=== PATIENT | male | born 1945 | race Caucasian/White ===

== ENCOUNTER 2020-10-07 12:14 | Inpatient (IN) | payer MEDICARE, BC ==
[2020-10-07] MEDS ORDERED: Ondansetron ODT 4 MG TAB SL PRN (17:28)
[2020-10-07] MEDS: Heparin 5,000 UNITS/ML VIAL SC SCH (20:24)
[2020-10-07] MEDS: Amiodarone 200 MG TAB PO SCH (20:24)
[2020-10-07] MEDS: Melatonin 3 MG TAB PO SCH (20:24)
[2020-10-07] MEDS: Senokot S 8.6-50 MG TAB PO SCH (20:25)
[2020-10-07] MEDS: Nystatin Cream 15 GM TUBE TOP SCH (20:33)
[2020-10-08 05:13] LABS: #Basophils 0.1 thou/uL (0.0-0.2); #Eosinphils 0.2 thou/uL (0.0-0.7); #Lymphocytes 0.9 thou/uL (1.20-3.40); #Monocytes 0.9 thou/uL (0.11-0.59); %Basophils 0.7 % (0.0-1.0); %Eosinophils 2.4 % (0.0-10.0); %Lymphocytes 11.4 % (21.0-51.0); %Monocytes 10.7 % (0.0-10.0); %Neutrophils 74.8 % (42.0-75.0); Mean Corpuscular HGB CONC 30.6 g/dL (32.0-36.0); Mean Corpuscular Hemoglobin 29.6 pg (27.0-31.0); Mean Corpuscular Volume 96.7 fL (78.0-98.0); Mean Platelet Volume 8.2 fL (7.4-10.4); Platelet Count 255 thou/uL (130-400); RBC Distribution Width 15.4 % (11.5-14.5); White Blood Cell (WBC) Count 8.1 thou/uL (4.8-10.8)
[2020-10-08 05:27] LABS: ALT (SGPT) 26 U/L (8-55); AST (SGOT) 30 U/L (5-34); Albumin 3.3 g/dL (3.4-4.8); Alkaline Phosphatase 114 U/L (40-110); Anion Gap 21 mmol/L (10-20); BUN (Urea Nitrogen) 71 mg/dL (8.4-25.7); Bilirubin, Total 0.4 mg/dL (0.2-1.2); Calc. Creatinine Clearance 18 mL/min (70-130); Calcium 8.5 mg/dL (7.8-10.44); Carbon Dioxide 21 mmol/L (23-31); Chloride 96 mmol/L (98-107); Globulin 3.3 g/dL (2.4-3.5); Glucose 120 mg/dL (83-110); Potassium 4.8 mmol/L (3.5-5.1); Protein, Total 6.6 g/dL (5.8-8.1); Sodium 133 mmol/L (136-145)
[2020-10-08 05:42] LABS: SARS-CoV-2 MS2 Positive; SARS-CoV-2 N Gene Negative; SARS-CoV-2 S Gene Negative; SARS-CoV-2 by NAA Not Detected (NotDetected); SARS-CoV-2 orf1ab Negative
[2020-10-08] MEDS ORDERED: traMADol HCl 50 MG TAB PO SCH (06:30)
[2020-10-08] MEDS: Gabapentin 300 MG CAP PO SCH ×2 (08:27→20:47)
[2020-10-08] MEDS: Atorvastatin Calcium 40 MG TAB PO SCH (08:27)
[2020-10-08] MEDS: Heparin 5,000 UNITS/ML VIAL SC SCH ×3 (08:27→20:48)
[2020-10-08] MEDS: Carvedilol 3.125 MG TAB PO SCH ×2 (08:28→17:17)
[2020-10-08] MEDS: Nystatin Cream 15 GM TUBE TOP SCH ×3 (08:28→20:47)
[2020-10-08] MEDS: Amiodarone 200 MG TAB PO SCH ×2 (08:28→20:47)
[2020-10-08] MEDS: Aspirin Chewable 81 MG TAB PO SCH (08:28)
[2020-10-08] MEDS: Melatonin 3 MG TAB PO SCH (20:47)
[2020-10-08] MEDS: Senokot S 8.6-50 MG TAB PO SCH ×2 (20:47→20:54)
[2020-10-08] MEDS ORDERED: Dextrose 50% Abboject 50 ML SYRINGE IVP PRN (22:15)
[2020-10-08] MEDS ORDERED: Dextrose 5% in Water 1,000 ML IV PRN (22:15)
--- NOTE | 2020-10-09 01:17 | HP ---
HISTORY OF PRESENT ILLNESS: The patient is a very pleasant 74-year-old white male with a history of systolic heart failure with subsequent ventricular arrhythmias and cardiopulmonary arrest requiring AICD placement. He also has a history of end-stage renal disease, on hemodialysis. [facility], but has still been unable to maintain ADLs and therefore is admitted to the [facility] for more therapy. He has a history of coronary artery bypass graft x3 in 1996 with a subsequent systolic cardiomyopathy with ejection fraction of 45%. He also has a history of type 2 diabetes, which has been fairly well controlled, but with complications of end-stage renal disease, on hemodialysis. PAST SURGICAL HISTORY: Positive for the above mentioned coronary artery bypass graft x3, AV fistula placement, AICD placement, multiple cardiac stents. SOCIAL HISTORY: He lives with his . He is a nonsmoker since his coronary artery bypass graft in 1996, he does not drink alcohol. FAMILY HISTORY: Both parents of heart disease. ALLERGIES: HE HAS NO KNOWN ALLERGIES. REVIEW OF SYSTEMS: HEENT: Denies headaches, dizziness, change in vision or hearing, hoarseness or dysphagia. PULMONARY: He denies cough, sputum production, pneumonia, asthma, or tuberculosis. CARDIOVASCULAR: He has above-mentioned history of dizziness, near syncope, and syncope, but has no shortness of breath at rest and no chest pain at rest. GASTROINTESTINAL: He denies nausea, vomiting, diarrhea, constipation, or abdominal pain. GENITOURINARY: He has above-mentioned history of end-stage renal disease, has very little urine output, but has had a recent urinary tract infection. MUSCULOSKELETAL: He has a history of a fracture of his left proximal humerus and is in a splint at this time. LABORATORY DATA: Show white count of 8100, hematocrit 35, hemoglobin 11, sodium is 133, potassium 4.8, chloride 96, bicarb 21, BUN 71, creatinine 5.82, calcium 8.5, total bilirubin 0.4, AST 38, ALT 26, alkaline phosphatase 114, albumin 3.3, and globulin 3.3. COVID negative. ASSESSMENT: The patient is an elderly white male with a history of ischemic cardiomyopathy and ventricular arrhythmias, status post AICD placement, who has significant deconditioning and is admitted to [facility] for continued PT, OT. He will also be monitored for any further signs of arrhythmia or shortness of breath. He will be continued on his hemodialysis three times weekly and will be continued on his prehospitalization medications of; 1. Amiodarone 200 mg twice daily. 2. Aspirin 81 daily. 3. Atorvastatin 40 mg daily. 4. Carvedilol 3.125 daily. 5. Gabapentin 300 twice daily. 6. He will have DVT prophylaxis with heparin 5000 units subcu twice daily and stress ulcer prophylaxis with pantoprazole 40 daily. 7. He will also be continued on ranolazine 500 mg twice daily for sick cardiomyopathy. 8. Tramadol as needed for his left shoulder pain. Job ID: [id number]
[2020-10-09] MEDS: Gabapentin 300 MG CAP PO SCH ×2 (08:46→19:59)
[2020-10-09] MEDS: Carvedilol 3.125 MG TAB PO SCH ×2 (08:46→16:08)
[2020-10-09] MEDS: Atorvastatin Calcium 40 MG TAB PO SCH (08:46)
[2020-10-09] MEDS: Amiodarone 200 MG TAB PO SCH ×2 (08:46→20:01)
[2020-10-09] MEDS: Aspirin Chewable 81 MG TAB PO SCH (08:46)
[2020-10-09] MEDS: Heparin 5,000 UNITS/ML VIAL SC SCH ×3 (08:46→20:01)
[2020-10-09] MEDS: Nystatin Cream 15 GM TUBE TOP SCH ×3 (08:47→19:58)
[2020-10-09] MEDS: Lidocaine 4% Topical Sol 50 ML BOT TOP PRN (12:00)
[2020-10-09] MEDS: HumaLOG 300 UNITS/3 ML VIAL SC PRN (16:24)
--- NOTE | 2020-10-09 19:09 | PRG ---
DATE OF SERVICE: 10/08/2020 SUBJECTIVE: The patient is lying in bed, somewhat upset about the food, but states that he is feeling better and cooperating with therapy. He denies any chest pain or shortness of breath. OBJECTIVE: VITAL SIGNS: Blood pressure is 121/68, temperature 97, pulse 63, respirations 20, O2 saturations 96% on room air. LUNGS: Clear. CARDIAC: Displays regular rhythm. ABDOMEN: Soft and nontender, but obese. SKIN AND EXTREMITIES: Show 2+ edema. ASSESSMENT: 1. Systolic heart failure, improving decompensation. 2. Ventricular arrhythmia, status post automatic implantable cardioverter defibrillator. 3. Morbid obesity. 4. Coronary artery disease, status post coronary artery bypass graft. PLAN: 1. Continue PT and OT. 2. Continue to monitor for shortness of breath or chest pain. 3. Review labs. 4. Discuss with therapy tomorrow. Job ID: [id number]
--- NOTE | 2020-10-09 19:34 | PRG ---
DATE OF SERVICE: SUBJECTIVE: Patient feels well, sitting up in the bed, worked well with Therapy. Still not enjoying the food, but feels he is getting stronger and he is hopeful he will be discharged next week. OBJECTIVE: VITAL SIGNS: His blood pressure is 122/60, temperature is 97, pulse 76, respirations 16, and O2 sats 94% on room air. LUNGS: Clear. CARDIAC: Shows regular rhythm. ABDOMEN: Obese and nontender. SKIN/EXTREMITIES: Show trace edema. No clubbing or cyanosis. NEUROLOGIC: Shows no focal findings. ASSESSMENT: 1. Compensated systolic heart failure. 2. Improving deconditioning. 3. Stable atrial fibrillation with rate control, on anticoagulation. PLAN: 1. Continue PT, OT. 2. Continue to monitor vital signs with Therapy. 3. Review labs and therapy notes. Job ID: [id number]
[2020-10-09] MEDS: Senokot S 8.6-50 MG TAB PO SCH (19:59)
[2020-10-09] MEDS: Melatonin 3 MG TAB PO SCH (19:59)
[2020-10-10] MEDS: HumaLOG 300 UNITS/3 ML VIAL SC PRN ×2 (05:47→12:00)
[2020-10-10] MEDS: Aspirin Chewable 81 MG TAB PO SCH (08:23)
[2020-10-10] MEDS: Amiodarone 200 MG TAB PO SCH ×2 (08:23→21:00)
[2020-10-10] MEDS: Heparin 5,000 UNITS/ML VIAL SC SCH ×3 (08:23→21:00)
[2020-10-10] MEDS: Atorvastatin Calcium 40 MG TAB PO SCH (08:23)
[2020-10-10] MEDS: Carvedilol 3.125 MG TAB PO SCH ×2 (08:23→17:18)
[2020-10-10] MEDS: Nystatin Cream 15 GM TUBE TOP SCH ×3 (08:24→21:00)
[2020-10-10] MEDS: Gabapentin 300 MG CAP PO SCH ×2 (08:24→21:04)
[2020-10-10] MEDS ORDERED: traMADol HCl 50 MG TAB PO SCH (11:00)
--- NOTE | 2020-10-10 14:11 | HP ---
HISTORY OF PRESENT ILLNESS: VITAL SIGNS: His blood pressure is 124/60, temperature is 97.8, pulse 67, respirations 20, and O2 sats 93% on room air. HEENT: Pupils are equal, round, and reactive to light and accommodation. Sclerae are anicteric. Conjunctivae are pale. Oral mucous membranes well hydrated. NECK: Supple. No nodes or masses. JVP is not elevated. LUNGS: Clear. CARDIAC: Shows irregular rhythm. ABDOMEN: Soft and nontender. Morbidly obese. There is SCD in place. SKIN/EXTREMITIES: Display 1 to 2+ edema. No clubbing or cyanosis. NEUROLOGIC: Intact. Job ID: [id number]
[2020-10-10] MEDS ORDERED: Pregabalin 50 MG CAP PO PRN (18:19)
--- NOTE | 2020-10-10 18:40 | PRG ---
DATE OF SERVICE: 10/10/2020 SUBJECTIVE: The patient lying in bed, feels well. Complains of recurrent burning pain in his scrotal and inguinal area, which he states is associated occasionally with a red rash. He describes it as a burning tingling pain that comes on at times. He is being treated with nystatin ointment with minimal relief. He states that when he took a tramadol that has helped him only minimally. He is working with therapy, but states he could not get out of the bed today because of this pain. OBJECTIVE: Shows that there is no real rash to be seen in his inguinal area. VITAL SIGNS: Show a blood pressure 121/65, pulse 67, respirations 20. He is afebrile. LUNGS: Clear. CARDIAC: Showed regular rhythm. ABDOMEN: Soft and nontender, but obese. ASSESSMENT: 1. Recurrent neuropathic pain in the right inguinal area which he states may have been due to shingles, but does not know of any history of shingles. 2. Ischemic cardiomyopathy, status post defibrillator placement after cardiac arrest, stable. 3. End-stage renal disease, on hemodialysis. 4. Severe deconditioning, improving slowly. 5. Stable atrial fibrillation with rate control and anticoagulation. PLAN: 1. Start pregabalin 50 mg q.8 hours as needed for neuropathic pain. 2. Continue nystatin. 3. Continue PT, OT. 4. Continue rate control and anticoagulation of atrial fibrillation. 5. Continue hemodialysis. Job ID: [id number]
[2020-10-10] MEDS: Melatonin 3 MG TAB PO SCH (21:00)
[2020-10-10] MEDS: Senokot S 8.6-50 MG TAB PO SCH (21:33)
--- NOTE | 2020-10-11 08:56 | PRG ---
DATE OF SERVICE: 10/11/2020 SUBJECTIVE: The patient is currently at dialysis right now and therefore I am not able to get a full history and physical on patient. However, nursing has no complaints at this time. The patient is using his Lyrica as needed for pain, which is helping per nursing staff. OBJECTIVE: VITAL SIGNS: Temperature 96.6, pulse of 67 to 69, respiratory rate 18 to 20, 96% on room air, blood pressure ranging 121/65 to 109/55. No new labs. Unable to perform physical exam as patient is at hemodialysis right now. ASSESSMENT: 1. Recurrent neuropathic pain in the right inguinal area. 2. Ischemic cardiomyopathy, status post defibrillator placement. 3. End-stage renal disease. 4. Severe deconditioning, improving. 5. Stable atrial fibrillation. PLAN: 1. Continue Lyrica 50 mg q.8h as needed for neuropathic pain. 2. Continue nystatin. 3. Continue PT, OT. 4. Continue rate control and anticoagulation of atrial fibrillation. 5. Continue hemodialysis. The patient is there at dialysis center today. Job ID: [id number] [facility]
[2020-10-11] MEDS: Aspirin Chewable 81 MG TAB PO SCH (09:25)
[2020-10-11] MEDS: Carvedilol 3.125 MG TAB PO SCH ×2 (09:25→16:08)
[2020-10-11] MEDS: Amiodarone 200 MG TAB PO SCH ×2 (09:25→20:33)
[2020-10-11] MEDS: Atorvastatin Calcium 40 MG TAB PO SCH (09:25)
[2020-10-11] MEDS: Nystatin Cream 15 GM TUBE TOP SCH ×3 (09:26→20:34)
[2020-10-11] MEDS: Gabapentin 300 MG CAP PO SCH ×2 (09:26→20:33)
[2020-10-11] MEDS: Heparin 5,000 UNITS/ML VIAL SC SCH ×3 (09:26→20:34)
[2020-10-11] MEDS: HumaLOG 300 UNITS/3 ML VIAL SC PRN (12:07)
[2020-10-11] MEDS: Lidocaine 4% Topical Sol 50 ML BOT TOP PRN ×2 (12:08→20:34)
[2020-10-11] MEDS: Melatonin 3 MG TAB PO SCH (20:33)
[2020-10-11] MEDS: Senokot S 8.6-50 MG TAB PO SCH (20:33)
[2020-10-12 07:36] LABS: #Basophils 0.1 thou/uL (0.0-0.2); #Eosinphils 0.1 thou/uL (0.0-0.7); #Monocytes 1.1 thou/uL (0.11-0.59); #Neutrophils 8.5 thou/uL (1.40-6.50); %Basophils 0.6 % (0.0-1.0); %Eosinophils 0.5 % (0.0-10.0); %Lymphocytes 9.1 % (21.0-51.0); %Monocytes 10.3 % (0.0-10.0); %Neutrophils 79.5 % (42.0-75.0); Hemoglobin 12.2 g/dL (14.0-18.0); Mean Corpuscular HGB CONC 31.5 g/dL (32.0-36.0); Mean Corpuscular Hemoglobin 30.3 pg (27.0-31.0); Mean Corpuscular Volume 96.1 fL (78.0-98.0); Mean Platelet Volume 7.8 fL (7.4-10.4); Platelet Count 257 thou/uL (130-400); RBC Distribution Width 16.4 % (11.5-14.5); Red Blood Cell (RBC) Count 4.04 mill/uL (4.70-6.10); White Blood Cell (WBC) Count 10.6 thou/uL (4.8-10.8)
[2020-10-12] MEDS: Carvedilol 3.125 MG TAB PO SCH ×2 (08:15→16:10)
[2020-10-12] MEDS: Amiodarone 200 MG TAB PO SCH ×2 (08:15→22:40)
[2020-10-12] MEDS: Atorvastatin Calcium 40 MG TAB PO SCH (08:15)
[2020-10-12] MEDS: Aspirin Chewable 81 MG TAB PO SCH (08:15)
[2020-10-12] MEDS: Nystatin Cream 15 GM TUBE TOP SCH ×3 (08:16→20:00)
[2020-10-12] MEDS: Gabapentin 300 MG CAP PO SCH ×2 (08:16→22:40)
[2020-10-12] MEDS: Heparin 5,000 UNITS/ML VIAL SC SCH ×3 (08:17→22:39)
[2020-10-12 08:34] LABS: Anion Gap 21 mmol/L (10-20); BUN (Urea Nitrogen) 46 mg/dL (8.4-25.7); Calc. Creatinine Clearance 21 mL/min (70-130); Calcium 8.5 mg/dL (7.8-10.44); Carbon Dioxide 23 mmol/L (23-31); Chloride 96 mmol/L (98-107); Potassium 4.2 mmol/L (3.5-5.1); Sodium 136 mmol/L (136-145)
[2020-10-12 08:49] LABS: Glucose 145 mg/dL (83-110)
--- NOTE | 2020-10-12 10:02 | PRG ---
DATE OF SERVICE: 10/12/2020 SUBJECTIVE: This is a well-appearing 74-year-old male, sitting up in his wheelchair, having just eaten breakfast. The patient states he is doing well on taking it "one day at a time." No concerns from nursing staff, however, nursing did report that he was inappropriate to her and attempted to grab her bottom when he was getting up. I discussed this with the patient and informed him that this will not be tolerated. REVIEW OF SYSTEMS: Reports left shoulder pain, but is improving. Reports cough as well that is stable. No shortness of breath. Nonproductive cough. No nausea, vomiting, diarrhea. No abdominal pain. OBJECTIVE: VITAL SIGNS: Today, temperature 97.8, pulse 69, respiratory rate 20, 95% on room air, blood pressure 120/70 to 108/55. GENERAL: Well-appearing, obese 74-year-old male, sitting up in his wheelchair at this time with left shoulder sling in place. HEART: Regular rate and rhythm. No murmurs, gallops, or rubs. RESPIRATORY: Clear to auscultation bilaterally. ABDOMEN: Nontender to palpation. Bowel sounds positive in all 4 quadrants. EXTREMITIES: Weakness on left side secondary to pain. Right upper extremity and bilateral lower extremities are 5/5 strength. ASSESSMENT: 1. Recurrent neuropathic pain in right inguinal area. 2. Ischemic cardiomyopathy, status post defibrillator. 3. End-stage renal disease with dialysis. 4. Severe deconditioning, improving. 5. Stable atrial fibrillation. PLAN: 1. Continue Lyrica 50 mg q.8 hours as needed for neuropathic pain. 2. Continue statin. 3. Continue PT/OT. 4. Continue rate control and anticoagulation of atrial fibrillation. 5. Continue hemodialysis. 6. I spoke with patient about his inappropriate comments and inappropriate actions, and he states that he is sorry that he caused any upset and he will not do these again. Job ID: [id number]
[2020-10-12] MEDS: Senokot S 8.6-50 MG TAB PO SCH (21:00)
[2020-10-12] MEDS: Melatonin 3 MG TAB PO SCH (22:40)
[2020-10-13] MEDS: Nystatin Cream 15 GM TUBE TOP SCH ×3 (09:00→20:47)
[2020-10-13] MEDS: Heparin 5,000 UNITS/ML VIAL SC SCH ×3 (09:12→20:39)
[2020-10-13] MEDS: Carvedilol 3.125 MG TAB PO SCH ×2 (11:09→18:02)
[2020-10-13] MEDS: Gabapentin 300 MG CAP PO SCH ×2 (11:09→20:45)
[2020-10-13] MEDS: Atorvastatin Calcium 40 MG TAB PO SCH (11:09)
[2020-10-13] MEDS: Aspirin Chewable 81 MG TAB PO SCH (11:09)
[2020-10-13] MEDS: Amiodarone 200 MG TAB PO SCH ×2 (11:15→20:44)
[2020-10-13] MEDS: HumaLOG 300 UNITS/3 ML VIAL SC PRN (12:03)
[2020-10-13] MEDS: Melatonin 3 MG TAB PO SCH (20:44)
[2020-10-13] MEDS: Senokot S 8.6-50 MG TAB PO SCH (20:46)
--- NOTE | 2020-10-14 05:54 | PRG ---
DATE OF SERVICE: 10/13/2020 SUBJECTIVE: The patient complains of being depressed and not seeing any into his hospitalization. He is cooperating with therapy and is awaiting therapy notes. Nurses states that he does have a slight increase cough, but he denies increased dyspnea. He is requiring oxygen at this time. OBJECTIVE: VITAL SIGNS: Shows his temperature is 98, pulse 84, respirations 18, and O2 sats 94% on room air. LUNGS: Show a few crackles in the bases. CARDIAC: Shows regular rhythm. SKIN/EXTREMITIES: Show trace edema. No clubbing. Does show the left arm is in a shoulder immobilizer. NEUROLOGIC: Intact. ASSESSMENT: 1. Increased depression and after discussion with the patient, we will start on sertraline. 2. Deconditioning with slow improvement and we will discuss with therapy today. 3. Ischemic cardiomyopathy, status post defibrillator, appears to be stable. 4. End-stage renal disease, on dialysis. 5. History of intermittent cough. PLAN: 1. Start sertraline 50 mg daily. 2. Discuss with therapy tomorrow about discharge plans. 3. Monitor cough. 4. Continue dialysis three times weekly. Job ID: [id number]
[2020-10-14 06:52] LABS: #Eosinphils 0.2 thou/uL (0.0-0.7); #Lymphocytes 0.8 thou/uL (1.20-3.40); #Monocytes 1.1 thou/uL (0.11-0.59); #Neutrophils 7.3 thou/uL (1.40-6.50); %Basophils 0.4 % (0.0-1.0); %Eosinophils 2.1 % (0.0-10.0); %Lymphocytes 8.8 % (21.0-51.0); %Monocytes 11.5 % (0.0-10.0); %Neutrophils 77.1 % (42.0-75.0); Hemoglobin 11.8 g/dL (14.0-18.0); Mean Corpuscular HGB CONC 31.2 g/dL (32.0-36.0); Mean Corpuscular Hemoglobin 30.1 pg (27.0-31.0); Mean Corpuscular Volume 96.6 fL (78.0-98.0); Mean Platelet Volume 9.2 fL (7.4-10.4); Platelet Count 190 thou/uL (130-400); RBC Distribution Width 16.5 % (11.5-14.5); Red Blood Cell (RBC) Count 3.91 mill/uL (4.70-6.10); White Blood Cell (WBC) Count 9.4 thou/uL (4.8-10.8)
[2020-10-14] MEDS: Nystatin Cream 15 GM TUBE TOP SCH ×3 (08:52→20:29)
[2020-10-14] MEDS: Heparin 5,000 UNITS/ML VIAL SC SCH ×3 (08:52→20:27)
[2020-10-14] MEDS: Gabapentin 300 MG CAP PO SCH ×2 (08:53→20:27)
[2020-10-14] MEDS: Amiodarone 200 MG TAB PO SCH ×2 (08:55→20:26)
[2020-10-14] MEDS: Aspirin Chewable 81 MG TAB PO SCH (08:55)
[2020-10-14] MEDS: Carvedilol 3.125 MG TAB PO SCH ×2 (08:55→17:35)
[2020-10-14] MEDS: Atorvastatin Calcium 40 MG TAB PO SCH (08:56)
--- NOTE | 2020-10-14 09:05 | RAD ---
PORTABLE CHEST: Date: 10/14/2020 HISTORY: Cough, shortness of breath. COMPARISON: 09/14/2020. FINDINGS/IMPRESSION: Cardiomegaly with postop sternotomy change. AICD leads unchanged. Large caliber central line overlies the SVC and is stable in position. Left basilar opacification may represent small effusion and left basilar infiltrate or atelectasis. Vascular congestion has improved since prior study. Tiny effusions may be present. POS: AGW
[2020-10-14] MEDS: HumaLOG 300 UNITS/3 ML VIAL SC PRN ×2 (13:01→20:31)
[2020-10-14 15:24] LABS: SARS-CoV-2 MS2 Positive; SARS-CoV-2 N Gene Positive; SARS-CoV-2 S Gene Positive; SARS-CoV-2 by NAA DETECTED (NotDetected); SARS-CoV-2 orf1ab Positive
[2020-10-14] MEDS: Senokot S 8.6-50 MG TAB PO SCH (20:25)
[2020-10-14] MEDS: Melatonin 3 MG TAB PO SCH (20:26)
--- NOTE | 2020-10-15 06:44 | PRG ---
DATE OF SERVICE: 10/14/2020 SUBJECTIVE: The patient is a 74-year-old white male with a history of ischemic cardiomyopathy and end-stage renal disease, on hemodialysis, who has been undergoing physical therapy for severe deconditioning and has had an intermittent cough at night only. He has had some pulmonary congestion on chest x-ray but has been having fluid removed at dialysis. He has been cooperating with therapy but has been very weak and minimally improving. He has had no fever or chills; however, because of his cough at night, he has had chest x-ray done for evaluation. OBJECTIVE: His chest x-ray shows pulmonary congestion, possible left lower lobe effusion and cardiomegaly, which appears to be stable and possibly slightly improved from previous x-ray last week. LUNGS: Show crackles in the bases. CARDIAC: Shows regular rhythm. ABDOMEN: Obese but nontender. SKIN/EXTREMITIES: Show no edema. VITAL SIGNS: Show a temperature of 97, pulse 62, respirations 20, O2 sats 96% on 1 L. LABORATORY DATA: Laboratory however has returned with elevated BNP of 462, which is consistent with his previous BNPs. Accu-Cheks have been stable at 123 to 172. His chest x-ray was as above. White count was normal at 9400, however, hematocrit 37 and hemoglobin 11, but COVID-19 test had returned positive on , this morning, and was negative on October 07 when accepted here. ASSESSMENT: 1. End-stage renal disease, on hemodialysis three times weekly with some improving fluid congestion. 2. Severe ischemic cardiomyopathy with no dyspnea at rest but with severe deconditioning and weakness on exertion, cooperating with therapy with minimal improvement. 3. New onset of depression, was confirmed by the patient and family, and being started on treatment with sertraline at his request. 4. New onset of COVID infection last week since admission. PLAN: 1. Contact tracing of COVID infection, possibly from dialysis, transport and/or hospital staff. 2. Continue monitor closely as the patient does appear to not have any evidence of pneumonia or respiratory distress. We will place on isolation with continued therapy in the room. 3. Ischemic cardiomyopathy with stable elevated BNP and cough, possibly due to pulmonary congestion. We will advise dialysis, about fluid removal. Continue on same medications. 4. Discussed situation with the family and advised isolation and close monitoring here and transfer to [facility] if any signs of deterioration of cardiopulmonary status, specifically change in vital signs or oxygen saturation. His prognosis is guarded and the family understands. Job ID: [id number]
[2020-10-15] MEDS: Amiodarone 200 MG TAB PO SCH ×2 (09:05→21:30)
[2020-10-15] MEDS: Atorvastatin Calcium 40 MG TAB PO SCH (09:05)
[2020-10-15] MEDS: Carvedilol 3.125 MG TAB PO SCH ×2 (09:05→16:06)
[2020-10-15] MEDS: Aspirin Chewable 81 MG TAB PO SCH (09:05)
[2020-10-15] MEDS: Nystatin Cream 15 GM TUBE TOP SCH ×3 (09:06→23:19)
[2020-10-15] MEDS: Heparin 5,000 UNITS/ML VIAL SC SCH ×3 (09:06→21:30)
[2020-10-15] MEDS: Gabapentin 300 MG CAP PO SCH ×2 (09:06→21:29)
[2020-10-15] MEDS: Lidocaine 4% Topical Sol 50 ML BOT TOP PRN (16:05)
--- NOTE | 2020-10-15 21:05 | PRG ---
DATE OF SERVICE: 10/15/2020 SUBJECTIVE: The patient is a well-appearing 74-year-old white male here for PT and OT services following ischemic cardiomyopathy. The patient had pulmonary congestion on chest x-ray earlier this week, and it was found that the patient had positive COVID-19 test since being admitted here. It is unknown if this is from him going to dialysis or from a worker here at the [facility]. OBJECTIVE: VITAL SIGNS: Temperature 96.6 to 98.0, pulse 69 to 74, respiratory rate 18, and O2 saturation 98% on room air. However, patient has been increased to 98% on 2 L nasal cannula. Blood pressure ranging from 116/59 to 122/58. LABORATORY DATA: White count 9.4, hemoglobin 11.8, hematocrit 37.8, and platelets 190. CBGs ranging from 123 to 174. ASSESSMENT: 1. End-stage renal disease, on hemodialysis. 2. Severe ischemic cardiomyopathy with no dyspnea at rest, but with severe deconditioning and weakness on exertion. Cooperating with therapy with minimal improvement. 3. New onset of depression, on sertraline. 4. New onset of COVID infection, last week since admission. PLAN: 1. Contact tracing of COVID infection from dialysis versus hospital staff. 2. Continue to monitor closely. If the patient requires further oxygen, he may be required to be transferred back to [facility]. 3. Ischemic cardiomyopathy with stable elevated BNP and cough possibly due to pulmonary congestion. Continue to monitor after dialysis. 4. Continue monitor for decompensation. 5. Continue PT and OT services. Job ID: [id number]
[2020-10-15] MEDS: Senokot S 8.6-50 MG TAB PO SCH (21:30)
[2020-10-15] MEDS: Melatonin 3 MG TAB PO SCH (21:30)
[2020-10-16] MEDS: Atorvastatin Calcium 40 MG TAB PO SCH (08:15)
[2020-10-16] MEDS: Aspirin Chewable 81 MG TAB PO SCH (08:15)
[2020-10-16] MEDS: Gabapentin 300 MG CAP PO SCH ×2 (08:16→21:44)
[2020-10-16] MEDS: Carvedilol 3.125 MG TAB PO SCH ×2 (08:17→17:02)
[2020-10-16] MEDS: Amiodarone 200 MG TAB PO SCH ×2 (08:17→21:44)
[2020-10-16] MEDS: Nystatin Cream 15 GM TUBE TOP SCH ×3 (08:18→21:43)
[2020-10-16] MEDS: Heparin 5,000 UNITS/ML VIAL SC SCH ×3 (08:19→21:45)
[2020-10-16] MEDS: Lidocaine 4% Topical Sol 50 ML BOT TOP PRN (15:00)
--- NOTE | 2020-10-16 16:29 | PRG ---
DATE OF SERVICE: 10/16/2020 SUBJECTIVE: Mr. Canseco is up in bed. He denies any complaints. He does have oxygen via nasal cannula. He also has a splint to his left forearm. He apparently tested positive for COVID-19. His herpes zoster outbreak has pretty much resolved. No family at bedside. Discussed with nursing. OBJECTIVE: VITAL SIGNS: He is afebrile. Heart rate is 60, respirations 16, oxygen saturation 98% on 1 L nasal cannula, blood pressure 109/68. CARDIOVASCULAR: S1, S2 plus. RESPIRATORY: Normal vesicular breath sounds. ABDOMEN: Soft, obese, nontender. Bowel sounds heard in all quadrants. EXTREMITIES: Without cyanosis, clubbing. Left arm in a splint. CENTRAL NERVOUS SYSTEM: Generalized weakness, otherwise nonfocal. IMPRESSION: 1. COVID positive. 2. End-stage renal disease, on hemodialysis. 3. Ischemic cardiomyopathy. 4. Resolved herpes zoster. 5. Anxiety and depression. 6. Diabetes mellitus type 2 and deconditioning. PLAN: 1. Continue current medications. 2. 1800 calorie heart healthy ADA renal diet. 3. Accu-Cheks with sliding scale coverage. 4. Monitor blood pressure and adjust medications as needed. 5. Monitor respiratory status. 6. Respiratory droplet precaution. 7. Hemodialysis per Nephrology. 8. Physical therapy. 9. Routine laboratory values. Job ID: [id number]
[2020-10-16] MEDS: Melatonin 3 MG TAB PO SCH (21:45)
[2020-10-16] MEDS: Senokot S 8.6-50 MG TAB PO SCH (21:45)
[2020-10-17] MEDS: Heparin 5,000 UNITS/ML VIAL SC SCH ×3 (09:03→20:49)
[2020-10-17] MEDS: Atorvastatin Calcium 40 MG TAB PO SCH (09:05)
[2020-10-17] MEDS: Gabapentin 300 MG CAP PO SCH ×2 (09:05→20:49)
[2020-10-17] MEDS: Carvedilol 3.125 MG TAB PO SCH ×2 (09:05→17:55)
[2020-10-17] MEDS: Amiodarone 200 MG TAB PO SCH ×2 (09:06→20:49)
[2020-10-17] MEDS: Nystatin Cream 15 GM TUBE TOP SCH ×3 (09:06→20:55)
[2020-10-17] MEDS: Aspirin Chewable 81 MG TAB PO SCH (09:06)
--- NOTE | 2020-10-17 15:38 | PRG ---
DATE OF SERVICE: 10/17/2020 SUBJECTIVE: Mr. Canseco is doing the same, resting in bed, finished lunch. Denies any questions or concerns. OBJECTIVE: VITAL SIGNS: He is afebrile, heart rate 62, respirations 18, oxygen saturation 98% on 1 L nasal cannula, blood pressure 102/58. CARDIOVASCULAR: S1-S2 plus. RESPIRATORY: Normal vesicular breath sounds with decreased air entry in the bases. ABDOMEN: Soft, obese, nontender. EXTREMITIES: Without cyanosis or clubbing. Left arm in a splint. Trace chronic lower extremity edema. IMPRESSION: 1. COVID-19 positive. 2. Hypoxemic respiratory failure. 3. Ischemic cardiomyopathy. 4. Diabetes mellitus type 2. 5. Deconditioning. PLAN: 1. Continue current medications. 2. 1800 calorie heart healthy ADA renal diet. 3. Accu-Cheks with sliding scale coverage. 4. Monitor respiratory status. 5. Continue respiratory droplet precautions. Hemodialysis per Nephrology. 6. Continue physical therapy. 7. Routine laboratory values. Job ID: [id number]
[2020-10-17] MEDS: Melatonin 3 MG TAB PO SCH (20:49)
[2020-10-17] MEDS: Senokot S 8.6-50 MG TAB PO SCH (20:53)
[2020-10-18] MEDS: Atorvastatin Calcium 40 MG TAB PO SCH (10:50)
[2020-10-18] MEDS: Aspirin Chewable 81 MG TAB PO SCH (10:51)
[2020-10-18] MEDS: Amiodarone 200 MG TAB PO SCH ×2 (10:52→21:54)
[2020-10-18] MEDS: Nystatin Cream 15 GM TUBE TOP SCH ×3 (10:53→21:50)
[2020-10-18] MEDS: Carvedilol 3.125 MG TAB PO SCH ×2 (10:53→18:06)
[2020-10-18] MEDS: Gabapentin 300 MG CAP PO SCH ×2 (10:53→21:53)
[2020-10-18] MEDS: Heparin 5,000 UNITS/ML VIAL SC SCH ×3 (10:58→21:53)
--- NOTE | 2020-10-18 16:43 | PRG ---
DATE OF SERVICE: 10/18/2020 SUBJECTIVE: Mr. Canseco from dialysis. He apparently had a slight drop in blood pressure after the carvedilol. He is not showing any signs of decreased perfusion. He remains mentally alert. Discussed with Nursing and I advised them to hold carvedilol if systolic blood pressure is less than 120. OBJECTIVE: VITAL SIGNS: He is afebrile, heart rate 65, respirations 20, oxygen saturation 96% on 2 L, blood pressure 94/74. CARDIOVASCULAR: S1-S2 plus. RESPIRATORY: Normal vesicular breath sounds. ABDOMEN: Soft, obese, nontender. EXTREMITIES: Without cyanosis or clubbing. Trace edema. CENTRAL NERVOUS SYSTEM: Generalized weakness. IMPRESSION: 1. COVID-19 infection. 2. Ischemic cardiomyopathy. 3. End-stage renal disease, on hemodialysis. 4. Diabetes mellitus, type 2. 5. Deconditioning. PLAN: 1. Continue current medications. 2. Hold carvedilol if systolic blood pressure is less than 120. 3. Accu-Cheks with sliding scale coverage. 4. 1800 calorie heart healthy ADA renal diet. 5. Continue brace/splint for his left shoulder. 6. Hemodialysis per Nephrology. 7. Physical therapy. 8. Continue respiratory droplet precautions. Job ID: [id number]
[2020-10-18] MEDS: Melatonin 3 MG TAB PO SCH (21:52)
[2020-10-18] MEDS: Senokot S 8.6-50 MG TAB PO SCH (21:53)
[2020-10-19 06:12] VITALS: BMI 30.1
[2020-10-19] MEDS: Atorvastatin Calcium 40 MG TAB PO SCH (09:12)
[2020-10-19] MEDS: Nystatin Cream 15 GM TUBE TOP SCH ×3 (09:12→21:08)
[2020-10-19] MEDS: Gabapentin 300 MG CAP PO SCH ×3 (09:12→22:12)
[2020-10-19] MEDS: Amiodarone 200 MG TAB PO SCH ×3 (09:14→22:13)
[2020-10-19] MEDS: Carvedilol 3.125 MG TAB PO SCH ×3 (09:14→17:25)
[2020-10-19] MEDS: Aspirin Chewable 81 MG TAB PO SCH (09:15)
[2020-10-19] MEDS: Heparin 5,000 UNITS/ML VIAL SC SCH ×3 (09:15→21:05)
--- NOTE | 2020-10-19 12:34 | RAD ---
EXAM: Single view of the chest HISTORY: Shortness of breath COMPARISON: 10/14/2020 FINDINGS: Single view of the chest shows an enlarged but stable cardiomediastinal silhouette. The pa tient is status post CABG. The dialysis catheter and pacemaker are unchanged in position. There appears to be a small left pleural effusion with adjacent atelectasis versus infiltrate. Atelectasis versus infiltrate may also be seen in the right lung base. There appears to be a fracture the proximal left humerus. IMPRESSION: Cardiomegaly and left pleural effusion with adjacent atelectasis versus infiltrate
[2020-10-19] MEDS: Albuterol Sulfate 2.5 mg/3 ml Neb NEB PRN ×2 (14:18→23:13)
--- NOTE | 2020-10-19 15:00 | PRG ---
DATE OF SERVICE: 10/19/2020 SUBJECTIVE: Mr. Canseco is more somnolent today. Nursing was consented, code elmer was called. His vital signs were stable. I ordered a stat chest x-ray, which does not show any changes compared to the previous one on the . Did order some breathing treatments and encouraging the patient to use his incentive spirometry. The patient apparently is not compliant. No family at bedside. OBJECTIVE: VITAL SIGNS: He is afebrile, heart rate 66, respirations 21, oxygen saturation 93% on 1 L, and blood pressure 127/60. CARDIOVASCULAR: S1 and S2 plus. RESPIRATORY: Normal vesicular breath sounds with occasional rhonchi. Decreased breath sounds of the left base. ABDOMEN: Soft, obese, nontender. EXTREMITIES: Without cyanosis, clubbing. Edema, chronic is present. CENTRAL NERVOUS SYSTEM: Awake and responsive, but somnolent. No changes from yesterday. IMPRESSION: 1. End-stage renal disease, on hemodialysis. 2. Recent COVID-19 infection. 3. Ischemic cardiomyopathy. 4. Significant deconditioning. 5. Left humerus fracture. 6. Obesity. 7. Diabetes mellitus type 2. PLAN: 1. Continue current medications. 2. 1800-calorie heart healthy ADA diet. 3. Accu-Cheks with sliding scale coverage. 4. Orthopedic precautions. 5. DVT prophylaxis with heparin. 6. Decubitus precaution. 7. Stress ulcer prophylaxis. 8. Dr. Holland will assume care at 9 p.m. [email or web address]. 9. Reinforce compliance with incentive spirometry. Job ID: [id number]
[2020-10-19] MEDS: Senokot S 8.6-50 MG TAB PO SCH (21:01)
[2020-10-19] MEDS: Melatonin 3 MG TAB PO SCH ×2 (21:06→22:15)
[2020-10-20 05:30] LABS: #Eosinphils 0.2 thou/uL (0.0-0.7); #Lymphocytes 0.7 thou/uL (1.20-3.40); #Monocytes 0.8 thou/uL (0.11-0.59); #Neutrophils 6.6 thou/uL (1.40-6.50); %Basophils 0.3 % (0.0-1.0); %Eosinophils 2.1 % (0.0-10.0); %Lymphocytes 8.8 % (21.0-51.0); %Monocytes 9.5 % (0.0-10.0); %Neutrophils 79.3 % (42.0-75.0); Hemoglobin 11.4 g/dL (14.0-18.0); Mean Corpuscular HGB CONC 31.1 g/dL (32.0-36.0); Mean Corpuscular Hemoglobin 30.4 pg (27.0-31.0); Mean Corpuscular Volume 97.9 fL (78.0-98.0); Mean Platelet Volume 8.9 fL (7.4-10.4); Platelet Count 152 thou/uL (130-400); RBC Distribution Width 17.8 % (11.5-14.5); Red Blood Cell (RBC) Count 3.74 mill/uL (4.70-6.10); White Blood Cell (WBC) Count 8.3 thou/uL (4.8-10.8)
[2020-10-20 05:40] LABS: Anion Gap 22 mmol/L (10-20); BUN (Urea Nitrogen) 59 mg/dL (8.4-25.7); Calc. Creatinine Clearance 14 mL/min (70-130); Carbon Dioxide 23 mmol/L (23-31); Chloride 102 mmol/L (98-107); Glucose 88 mg/dL (83-110); Potassium 5.3 mmol/L (3.5-5.1); Sodium 142 mmol/L (136-145)
[2020-10-20] MEDS: Albuterol Sulfate 2.5 mg/3 ml Neb NEB PRN (09:49)
[2020-10-20] MEDS: Heparin 5,000 UNITS/ML VIAL SC SCH ×3 (09:55→21:21)
[2020-10-20] MEDS: Carvedilol 3.125 MG TAB PO SCH ×2 (09:58→18:46)
[2020-10-20] MEDS: Aspirin Chewable 81 MG TAB PO SCH (09:59)
[2020-10-20] MEDS: Atorvastatin Calcium 40 MG TAB PO SCH (09:59)
[2020-10-20] MEDS: Amiodarone 200 MG TAB PO SCH ×2 (09:59→20:10)
[2020-10-20] MEDS: Gabapentin 300 MG CAP PO SCH (10:00)
[2020-10-20] MEDS: Nystatin Cream 15 GM TUBE TOP SCH ×3 (10:01→21:21)
--- NOTE | 2020-10-20 19:41 | PRG ---
DATE OF SERVICE: 10/20/2020 SUBJECTIVE: The patient is awake, but appears to be confused and lethargic. Answers questions somewhat appropriately, but slowly, in no respiratory distress and denies any pain or shortness of breath. OBJECTIVE: VITAL SIGNS: Shows temperature is 97, pulse 71, respirations 17, O2 sats 93% on 1 L, and blood pressure 129/69. LUNGS: Clear. CARDIAC: Shows regular rhythm. ABDOMEN: Obese and nontender. SKIN/EXTREMITIES: Show 1+ edema. No clubbing or cyanosis. LABORATORY DATA: White count is 8300, hematocrit 36, and hemoglobin 11. Sodium 142, potassium 5.3, chloride 102, bicarb 23, BUN 59, and creatinine 6.27. Accu-Cheks 81 to 104. ASSESSMENT: 1. Increased lethargy, possibly due to side effect from combination of gabapentin and Lyrica and we will discontinue gabapentin and only continue Lyrica as needed. 2. Ischemic cardiomyopathy, improved, but still having to hold carvedilol occasionally. 3. Diabetes type 2, controlled to goal. 4. End-stage renal disease, on hemodialysis, stable. PLAN: 1. Discontinue gabapentin. 2. Monitor vital signs. 3. Continue PT, OT and discuss with therapy tomorrow and plan for discharge. Job ID: [id number]
[2020-10-20] MEDS: Senokot S 8.6-50 MG TAB PO SCH (20:10)
[2020-10-20] MEDS: Melatonin 3 MG TAB PO SCH (20:10)
[2020-10-21] MEDS: Carvedilol 3.125 MG TAB PO SCH ×2 (07:50→16:46)
[2020-10-21] MEDS: Aspirin Chewable 81 MG TAB PO SCH (09:26)
[2020-10-21] MEDS: Amiodarone 200 MG TAB PO SCH ×2 (09:26→21:05)
[2020-10-21] MEDS: Atorvastatin Calcium 40 MG TAB PO SCH (09:26)
[2020-10-21] MEDS: Heparin 5,000 UNITS/ML VIAL SC SCH ×3 (09:26→21:05)
[2020-10-21] MEDS: Nystatin Cream 15 GM TUBE TOP SCH ×3 (09:26→21:06)
[2020-10-21 16:10] LABS: #Eosinphils 0.1 thou/uL (0.0-0.7); #Lymphocytes 0.5 thou/uL (1.20-3.40); #Monocytes 0.8 thou/uL (0.11-0.59); #Neutrophils 8.8 thou/uL (1.40-6.50); %Basophils 0.2 % (0.0-1.0); %Eosinophils 0.6 % (0.0-10.0); %Lymphocytes 4.6 % (21.0-51.0); %Monocytes 8.2 % (0.0-10.0); %Neutrophils 86.4 % (42.0-75.0); Hemoglobin 11.8 g/dL (14.0-18.0); Mean Corpuscular Hemoglobin 30.5 pg (27.0-31.0); Mean Corpuscular Volume 98.4 fL (78.0-98.0); Mean Platelet Volume 8.7 fL (7.4-10.4); Platelet Count 147 thou/uL (130-400); RBC Distribution Width 17.8 % (11.5-14.5); Red Blood Cell (RBC) Count 3.88 mill/uL (4.70-6.10); White Blood Cell (WBC) Count 10.2 thou/uL (4.8-10.8)
[2020-10-21 16:21] LABS: Anion Gap 22 mmol/L (10-20); BUN (Urea Nitrogen) 24 mg/dL (8.4-25.7); Calc. Creatinine Clearance 26 mL/min (70-130); Calcium 8.3 mg/dL (7.8-10.44); Carbon Dioxide 24 mmol/L (23-31); Chloride 102 mmol/L (98-107); Glucose 83 mg/dL (83-110); Potassium 4.9 mmol/L (3.5-5.1); Sodium 143 mmol/L (136-145)
--- NOTE | 2020-10-21 16:31 | RAD ---
PORTABLE CHEST: 10/21/20 HISTORY: Chest pain, shortness of breath. COMPARISON: 10/19/20. FINDINGS/IMPRESSION: Cardiomegaly with mild vascular engorgement. Bibasilar infiltrates and/or atelectasis again noted. Ce ntral line and pacemaker leads unchanged. POS: AGW
[2020-10-21] MEDS: Melatonin 3 MG TAB PO SCH (21:05)
[2020-10-21] MEDS: Senokot S 8.6-50 MG TAB PO SCH (21:05)
--- NOTE | 2020-10-22 06:54 | PRG ---
DATE OF SERVICE: 10/21/2020 SUBJECTIVE: The patient is awake and alert, appears to be somewhat agitated, but minimally confused. He has refused therapy. Today, he has refused dialysis initially, but then was convinced to do today after discussion with his . I discussed with his son earlier this morning about possibility of hospice if he refuses dialysis. Advised the patient that if he does not continue dialysis, he will need to be on hospice, but the patient would not give an answer intelligently. He appears to be in no respiratory distress. He, however, is not eating or drinking. OBJECTIVE: VITAL SIGNS: Temperature 98.2, pulse 78, respirations 20, O2 sats 97% on 3 L, blood pressure is 117/55. LABORATORY DATA: White count is 10,200, hematocrit 38, hemoglobin 11. Sodium 143, potassium 4.9, chloride 102, bicarb 24, BUN 24, creatinine 3.41 after return from dialysis. BNP is 912. Attempted to discuss his case with his devops engineer, who is out with COVID-19 infection, but his partner states that he is pretty much end-stage with no other therapy indicated at this time. Nephrology has stated that if he refuses dialysis, he needs to go on hospice. ASSESSMENT: The patient is a 75-year-old white male with a history of end-stage renal disease, on hemodialysis, as well as ischemic cardiomyopathy, status post recurrent ventricular arrhythmias and cardiopulmonary arrest requiring AICD placement. He appears to be very depressed at this time, and despite being on antidepressants, he is refusing therapy and is refusing medications. It is felt that his altered mental status may have been due to medications, but his gabapentin has been discontinued and he is refusing pregabalin and has not received. PLAN: Discuss hospice care with and son as the patient appears not to be able to make decision at this time. Discharge from physical therapy as patient is not complying and they feel he is a hospice candidate. Continue dialysis as long as patient is not on hospice. Discontinue p.r.n. Lyrica to ensure not being given. Job ID: [id number]
[2020-10-22] MEDS: Heparin 5,000 UNITS/ML VIAL SC SCH ×3 (08:04→21:04)
[2020-10-22] MEDS: Nystatin Cream 15 GM TUBE TOP SCH ×3 (08:04→21:04)
[2020-10-22] MEDS: Amiodarone 200 MG TAB PO SCH ×2 (08:04→21:01)
[2020-10-22] MEDS: Carvedilol 3.125 MG TAB PO SCH ×2 (08:04→16:15)
[2020-10-22] MEDS: Aspirin Chewable 81 MG TAB PO SCH (08:04)
[2020-10-22] MEDS: Atorvastatin Calcium 40 MG TAB PO SCH (08:04)
[2020-10-22] MEDS: Melatonin 3 MG TAB PO SCH (21:01)
[2020-10-22] MEDS: Senokot S 8.6-50 MG TAB PO SCH (21:02)
--- NOTE | 2020-10-23 06:24 | PRG ---
DATE OF SERVICE: 10/22/2020 SUBJECTIVE: The patient has become minimally responsive and has not eaten or taken any meds for the last 24 hours. The family has come in and discussed situation with provider and nurses, and I have decided to place the patient on hospice as he has refused dialysis recently and has been told that if he does not accept dialysis, he will need to be on hospice. They are requesting [facility] and this will be consulted. OBJECTIVE: This time shows, VITAL SIGNS: His blood pressure is 127/58, temperature is 97, pulse 75, respirations 20, and O2 sats 94% on 2 L. LUNGS: Show a few diffuse rhonchi and rales. CARDIAC: Regular rhythm. NEUROLOGIC: The patient is coming in moaning and not responding to deep pain. Does move extremities. ASSESSMENT: 1. End-stage renal disease with refusal of dialysis. 2. Severe ischemic cardiomyopathy. 3. COVID-19 infection. No evidence of respiratory failure or pneumonia, but possibly contributing to his altered mental status. PLAN: 1. Consult [facility]. 2. Deactivate defibrillator. 3. Comfort measures as needed. Job ID: [id number]
[2020-10-23] MEDS: Heparin 5,000 UNITS/ML VIAL SC SCH ×3 (09:29→21:59)
[2020-10-23] MEDS: Nystatin Cream 15 GM TUBE TOP SCH ×3 (09:30→22:37)
[2020-10-23] MEDS: Carvedilol 3.125 MG TAB PO SCH ×2 (10:43→16:49)
[2020-10-23] MEDS: Aspirin Chewable 81 MG TAB PO SCH (10:44)
[2020-10-23] MEDS: Amiodarone 200 MG TAB PO SCH ×2 (10:44→21:59)
[2020-10-23] MEDS: Atorvastatin Calcium 40 MG TAB PO SCH (10:44)
[2020-10-23] MEDS: Albuterol Sulfate 2.5 mg/3 ml Neb NEB PRN (18:28)
[2020-10-23] MEDS: Melatonin 3 MG TAB PO SCH (21:59)
[2020-10-23] MEDS: Senokot S 8.6-50 MG TAB PO SCH (22:00)
[2020-10-24] MEDS: Nystatin Cream 15 GM TUBE TOP SCH (09:22)
[2020-10-24] MEDS: Heparin 5,000 UNITS/ML VIAL SC SCH (09:22)
[2020-10-24 10:54] VITALS: BP 104/61; TEMP 99.4
[2020-10-24] MEDS: Carvedilol 3.125 MG TAB PO SCH (10:56)
[2020-10-24] MEDS: Aspirin Chewable 81 MG TAB PO SCH (10:57)
[2020-10-24] MEDS: Amiodarone 200 MG TAB PO SCH (10:57)
[2020-10-24] MEDS: Atorvastatin Calcium 40 MG TAB PO SCH (10:58)
--- NOTE | 2020-10-24 17:46 | PRG ---
DATE OF SERVICE: 10/24/2020 SUBJECTIVE: The patient is minimally responsive to deep pain only, appears to be having episodes of slowing of respirations. Not eating at all and all of his medications stopped. He has been evaluated by hospice and we will have Nursing evaluate today for inpatient terminal care after discussion with the family. OBJECTIVE: VITAL SIGNS: Temperature 99.4, pulse 74, respirations 24, O2 sats 91% on 3 L. LUNGS: Show decreased breath sounds. CARDIAC: Shows regular rhythm. ABDOMEN: Soft. NEUROLOGICAL: Patient moves extremities to deep pain only. ASSESSMENT: Terminal end-stage renal disease and congestive heart failure with patient unresponsive except to deep pain. PLAN: Consult [facility] for inpatient care as patient is actively dying. Job ID: [id number]
== END 2020-10-24 22:36 | disposition hospice, inpatient (51) | DRG 947 ==
LOC: NAV ACUTE 12:14
PROVIDERS: ADMIT Internal Medicine; ATTEND Internal Medicine
PROC: 5A1D70Z Performance of Urinary Filtration, Intermittent, Less than 6 Hours Per Day (ICD-10-PCS; 2020-10-09)
PROC: 5A1D70Z Performance of Urinary Filtration, Intermittent, Less than 6 Hours Per Day (ICD-10-PCS; 2020-10-11)
PROC: 5A1D70Z Performance of Urinary Filtration, Intermittent, Less than 6 Hours Per Day (ICD-10-PCS; 2020-10-13)
PROC: 5A1D70Z Performance of Urinary Filtration, Intermittent, Less than 6 Hours Per Day (ICD-10-PCS; 2020-10-18)
PROC: 8E0ZXY6 Isolation (ICD-10-PCS; principal; 2020-10-20)
DX: R53.81 Other malaise (principal); N18.6 End stage renal disease; I50.23 Acute on chronic systolic (congestive) heart failure; U07.1 COVID-19; J96.91 Respiratory failure, unspecified with hypoxia; I25.5 Ischemic cardiomyopathy; Z68.30 Body mass index [BMI] 30.0-30.9, adult; I48.91 Unspecified atrial fibrillation; Z51.5 Encounter for palliative care; X58.XXXD Exposure to other specified factors, subsequent encounter; E66.01 Morbid (severe) obesity due to excess calories; I25.10 Atherosclerotic heart disease of native coronary artery without angina pectoris; Z95.810 Presence of automatic (implantable) cardiac defibrillator; Z99.2 Dependence on renal dialysis; Z95.5 Presence of coronary angioplasty implant and graft; Z95.1 Presence of aortocoronary bypass graft; S42.202D Unspecified fracture of upper end of left humerus, subsequent encounter for fracture with routine healing; Z79.01 Long term (current) use of anticoagulants; F32.9 Major depressive disorder, single episode, unspecified; F41.9 Anxiety disorder, unspecified; E11.9 Type 2 diabetes mellitus without complications; E11.22 Type 2 diabetes mellitus with diabetic chronic kidney disease; Z82.49 Family history of ischemic heart disease and other diseases of the circulatory system; B02.9 Zoster without complications; Z66 Do not resuscitate
CPT/HCPCS: 36416; 71045; 80048; 80053; 83880; 85025; 87635; 94640; 36415-59; J1644; J7611; Q0162; U0003

== ENCOUNTER 2020-10-24 22:46 | Inpatient (IN) | payer MEDICARE, BC ==
[2020-10-24 23:41] VITALS: BP 101/53; TEMP 99.6
[2020-10-25] MEDS ORDERED: Ondansetron ODT 4 MG TAB PO PRN (00:22)
[2020-10-25] MEDS ORDERED: Lorazepam 1 MG TAB PO PRN ×2 (00:23→00:24)
[2020-10-25] MEDS ORDERED: Morphine 10 MG/0.5 ML ORAL SYRINGE SL PRN ×2 (00:26)
== END 2020-10-25 15:55 | disposition expired | DRG 951 ==
LOC: NAV ACUTE 22:46
PROVIDERS: ADMIT Internal Medicine; ATTEND Internal Medicine
DX: Z51.5 Encounter for palliative care (principal); N18.6 End stage renal disease; R53.81 Other malaise; I25.5 Ischemic cardiomyopathy; I50.22 Chronic systolic (congestive) heart failure; E11.22 Type 2 diabetes mellitus with diabetic chronic kidney disease; Z95.810 Presence of automatic (implantable) cardiac defibrillator; Z99.2 Dependence on renal dialysis; Z95.1 Presence of aortocoronary bypass graft; Z95.5 Presence of coronary angioplasty implant and graft; Z79.899 Other long term (current) drug therapy; Z79.82 Long term (current) use of aspirin